=== PATIENT | female | born 1955 | race Caucasian/White ===

== ENCOUNTER 2017-08-01 18:30 | Emergency (ER) | payer BC ==
--- NOTE | 2017-08-01 19:31 | RAD ---
INDICATION: Swelling, possible foreign body. TECHNIQUE: 4 views of the right hand were obtained. FINDINGS: There is diffuse soft tissue swelling present which is most prominent in dorsal to the metacarpal bones. There is subluxation of the second and third metacarpophalangeal joints. There is mild to moderate arthritic change in the proximal and distal interphalangeal joints. No fracture or radiopaque foreign body is seen. IMPRESSION: 1. SOFT TISSUE SWELLING, NO FOREIGN BODY IS SEEN. 2. SUBLUXATION OF THE SECOND AND THIRD METACARPOPHALANGEAL JOINTS POSSIBLY RELATED TO AN INFLAMMATORY ARTHROPATHY SUCH RHEUMATOID ARTHRITIS. RECOMMEND CLINICAL CORRELATION. 3. MILD TO MODERATE ARTHRITIC CHANGE IN THE PROXIMAL AND DISTAL INTERPHALANGEAL JOINTS.
--- NOTE | 2017-08-01 19:39 | UC ---
Hand/Wrist HPI - HPI Summary HPI Summary: right hand swollen and painful, no known injuries - History Of Current Complaint Chief Complaint: UCLowerExtremity Stated Complaint: SWOLLEN HAND Time Seen by Provider: 08/01/17 18:55 Hx Obtained From: Patient ?: No Mechanism Of Injury: no known injury Onset/Duration: Sudden Onset, Lasting Days, Still Present Severity Initially: Moderate Severity Currently: Moderate Character Of Pain: Aching Aggravating Factor(s): Movement Alleviating: Nothing Associated Signs And Symptoms: Positive: Swelling Related History: Dominant Hand Right - Allergies/Home Medications Allergies/Adverse Reactions: Allergies Allergy/AdvReac Type Severity Reaction Status Date / Time No Known Allergies Allergy Verified 08/01/17 18:48 PMH/Surg Hx/FS Hx/Imm Hx Previously Healthy: Yes - Surgical History Surgical History: Yes Surgery Procedure, Year, and Place: APPENDIX CHILD, REMOVAL OF A OVARY , LEFT KNEE SURGERY 2009 - Family History Known Family History: Positive: None - Social History Occupation: Employed Full-time Lives: With Family Alcohol Use: None Substance Use Type: None Smoking Status (MU): Never Smoked Tobacco Review of Systems Constitutional: Negative Skin: Negative Eyes: Negative ENT: Negative Respiratory: Negative Cardiovascular: Negative Gastrointestinal: Negative Genitourinary: Negative Motor: Negative Neurovascular: Decreased Sensation, Decreased Pulses Musculoskeletal: Arthralgia - right hand, Edema - right hand Neurological: Negative Psychological: Negative All Other Systems Reviewed And Are Negative: Yes Physical Exam Triage Information Reviewed: Yes Appearance: Well-Appearing, No Pain Distress, Well-Nourished Vital Signs: Initial Vital Signs Temp 98.6 F 08/01/17 18:41 Pulse 61 08/01/17 18:41 Resp 12 08/01/17 18:41 BP 128/44 08/01/17 18:41 Pulse Ox 100 08/01/17 18:41 Vital Signs Reviewed: Yes Eye Exam: Normal Eyes: Positive: Conjunctiva Clear ENT Exam: Normal ENT: Positive: Normal ENT inspection, Hearing grossly normal, TMs normal. Negative: Nasal congestion, Nasal drainage, Trismus, Muffled/hoarse voice Dental Exam: Normal Neck exam: Normal Neck: Positive: Supple, Nontender, No Lymphadenopathy Respiratory Exam: Normal Respiratory: Positive: Chest non-tender, Lungs clear, Normal breath sounds, No respiratory distress, No accessory muscle use Cardiovascular Exam: Normal Cardiovascular: Positive: RRR, No Murmur, Pulses Normal, Brisk Capillary Refill Musculoskeletal Exam: Other Musculoskeletal: Positive: Strength Intact, ROM Intact, Edema @ - right hand Neurological Exam: Normal Neurological: Positive: Alert, Muscle Tone Normal Psychological Exam: Normal Diagnostics - Radiology No standard instances Xray Interpretation: Positive (See Comments) - arthritic changes Radiology Interpretation Completed By: Radiologist Hand/Wrist Course/Dx - Course Course Of Treatment: labs, cock up splint, doxycycline, follow with pcp/ortho this week - Differential Dx/Diagnosis Differential Diagnosis/HQI/PQRI: Cellulitis, Contusion, Fracture, Infection, Tendonitis Provider Diagnoses: Acute arthritis right hand Discharge - Discharge Plan Condition: Stable Disposition: HOME Prescriptions: DOXYcycline CAP(*) [DOXYcycline 100MG CAP(*)] 100 mg PO BID #[id number] cap Patient Education Materials: Ibuprofen (By mouth), Arthritis (ED) Referrals: Cheri Esposito MD [Primary Care Provider] - 3 Days
[2017-08-01] MEDS ORDERED: DOXYcycline CAP(*) 100 MG PO ONE (19:41)
[2017-08-01 20:40] VITALS: BP 124/46
[2017-08-02 14:03] LABS: Hematocrit 37 % (35-47); Hemoglobin 12.2 g/dl (12.0-16.0); Mean Corpuscular HGB Conc 33 g/dl (31-36); Mean Corpuscular Hemoglobin 32 pg (27-31); Mean Corpuscular Volume 97 fL (80-97); Mean Platelet Volume 8 um3 (7.4-10.4); Red Blood Count 3.78 10^6/ul (4.0-5.4); Red Cell Distribution Width 14 % (10.5-15); White Blood Count 7.2 10^3/ul (3.5-10.8)
[2017-08-05 13:43] LABS: Lyme Disease IgG Ab WB Negative (Negative)
--- NOTE | 2017-08-05 16:20 | UC ---
Progress - Progress Note Progress Note: notify pt of results should continue antibiotic but follow up with her MD for further evaluation
== END 2017-08-01 20:37 | disposition home or self-care (01) ==
LOC: UCEAST 18:30
DX: M19.041 Primary osteoarthritis, right hand (principal)
CPT/HCPCS: 36415; 85025; 86140; 86617; 86618; 99213; A9270-GY; G0463

== ENCOUNTER 2021-10-14 05:40 | Inpatient (IN) ==
[~2021-10-14 05:40] MED LIST: Buffered Lidocaine 1% SYRIN 1 ml INTRADERM ONE; DiMENhydriNATE IV 50 mg/ml 1 ml VIAL IV PUSH ONE; HYDROcodone/ACETAMIN 5/325 mg TAB PO PRN; Lactated Ringers 1000 ml BAG 1,000 ML IV SCH; Metoclopramide 5 MG/ML VIAL (10 mg) IV PRN; Naloxone 0.4 mg VIAL 0.4 mg/ml 1 ml VIAL IV PRN; Ondansetron 4 mg VIAL 2 MG/ML 2 ml VIAL IV PRN
[2021-10-14] MEDS ORDERED: DiMENhydriNATE IV 50 mg/ml 1 ml VIAL ONE (05:59)
[2021-10-14] MEDS ORDERED: ceFAZolin 2 GM in NS PREMIX 2 GM/100 ML BAG IVPB ONE (06:00)
[2021-10-14] MEDS ORDERED: Lidocaine 2% PF 5 ML VIAL ONE (06:53)
[2021-10-14] MEDS ORDERED: fentaNYL 250 mcg/5 ml 50 MCG/ML 5 ml VIAL (250 MCG) ONE ×2 (06:54→08:40)
[2021-10-14] MEDS ORDERED: Rocuronium 50 mg VIAL 10 mg/ml 5 ml VIAL (50 mg) ONE (06:54)
[2021-10-14] MEDS ORDERED: Midazolam 2 mg/2 ml VIAL 1 mg/ml 2 ml VIAL (2 mg) ONE (07:11)
[2021-10-14] MEDS ORDERED: Bupivacaine 0.5% SDV PF 30ML VIAL ONE (07:12)
[2021-10-14] MEDS ORDERED: Ropivacaine 5 MG/ML 20 ML VIAL 0.5% (100 MG) ONE ×2 (07:20→09:14)
[2021-10-14] MEDS ORDERED: diPHENhydraMINE 25 mg TAB PO PRN (07:36)
[2021-10-14] MEDS ORDERED: Lactulose 30 ml UDC PO PRN (07:36)
[2021-10-14] MEDS ORDERED: Magnesium Hydroxide LIQ 30 ML UDC PO PRN (07:36)
[2021-10-14] MEDS ORDERED: Morphine 2 MG/ML SYRINGE IV PRN (07:36)
[2021-10-14] MEDS ORDERED: Ondansetron 4 mg VIAL 2 MG/ML 2 ml VIAL IV PRN (07:36)
[2021-10-14] MEDS ORDERED: diPHENhydraMINE IV 50 MG/ML 1 ml VIAL (BENADRYL) IV PRN (07:36)
[2021-10-14] MEDS ORDERED: Ondansetron ODT 4 mg TAB 4 MG TAB PO PRN (07:36)
[2021-10-14] MEDS ORDERED: Ondansetron 4 mg VIAL 2 MG/ML 2 ml VIAL ONE ×2 (08:09→12:15)
[2021-10-14] MEDS ORDERED: Dexamethasone IV 4 MG/ML VIAL 1 ml VIAL ONE (08:09)
[2021-10-14] MEDS ORDERED: Phenylephrine IV 10 MG/ML 1 ml VIAL ONE (08:24)
[2021-10-14] MEDS ORDERED: fentaNYL 100 mcg/2 ml 50 MCG/ML VIAL ONE (12:15)
[2021-10-14] MEDS ORDERED: Metoclopramide 5 MG/ML VIAL (10 mg) ONE (12:15)
[2021-10-14] MEDS: fentaNYL 100 mcg/2 ml 50 MCG/ML VIAL IV PRN ×4 (12:21→12:45)
[2021-10-14] MEDS: Magnesium Hydroxide LIQ 30 ML UDC PO SCH ×2 (13:41→22:25)
[2021-10-14] MEDS: Vitamin THERAPEUTIC TAB PO SCH (13:41)
[2021-10-14] MEDS: Lactated Ringers 1000 ml BAG 1,000 ML IV SCH ×2 (14:02→23:37)
[2021-10-14] MEDS: Clindamycin 600 MG/D5W BAG 600 MG/50 ML BAG IV SCH ×2 (16:32→23:28)
[2021-10-15] MEDS ORDERED: NS 0.9% 500 ML @ Wide Open(Bolus) 500ml IV ONE (06:00)
[2021-10-15 06:17] LABS: Hematocrit 24 % (35-47); Hemoglobin 8.1 g/dL (12.0-16.0); Mean Platelet Volume 7.1 fL (7.4-10.4); Platelet Count 238 10^3/uL (150-450)
[2021-10-15 06:40] LABS: Calcium 7.7 mg/dL (8.6-10.3); Potassium 3.7 mmol/L (3.5-5.0)
[2021-10-15] MEDS: Clindamycin 600 MG/D5W BAG 600 MG/50 ML BAG IV SCH (08:10)
[2021-10-15] MEDS: Vitamin THERAPEUTIC TAB PO SCH (08:56)
[2021-10-15] MEDS: Magnesium Hydroxide LIQ 30 ML UDC PO SCH (08:57)
[2021-10-15] MEDS ORDERED: Lactated Ringers 500 ml BAG 500 ML IV ONE ×3 (09:00→12:41)
[2021-10-15] MEDS: Lactated Ringers 1000 ml BAG 1,000 ML IV SCH ×2 (09:00→12:55)
[2021-10-15 13:02] VITALS: BP 104/60
== END 2021-10-15 15:33 | disposition home or self-care (01) | DRG 302 ==
LOC: AA 05:40 → SSU 13:19
PROVIDERS: ADMIT Orthopaedic Surgery Adult Reconstructive Orthopaedic Surgery; ATTEND Orthopaedic Surgery Adult Reconstructive Orthopaedic Surgery